=== PATIENT | female | born 1960 | race African-American/Black ===

== ENCOUNTER → 2017-12-17 | Emergency (ER) | payer OTHER ==
[~2017-12-17] VITALS: Ht 160 cm; Wt 37.2 kg
[~2017-12-17] MED LIST: AMOX1TAB12 PO; GLUCOPHAGE XR500 MG; MUPIROCIN22 GM TOP
== END | disposition left against medical advice (07) ==
LOC: ER 13:48
DX: N39.0 Urinary tract infection, site not specified (principal); M54.5 Low back pain

== ENCOUNTER 2018-01-02 11:21 | Emergency (ER) | payer OTHER ==
[~2018-01-02] VITALS: Ht 149.9 cm; Wt 37.2 kg
== END 2018-01-02 14:16 | disposition home or self-care (01) ==
LOC: ER 11:21
DX: M54.5 Low back pain (principal)

== ENCOUNTER 2018-01-09 15:46 | Emergency (ER) | payer OTHER ==
[~2018-01-09] VITALS: Ht 160 cm; Wt 37.2 kg
== END 2018-01-09 18:30 | disposition home or self-care (01) ==
LOC: ER 15:46
DX: S13.4XXD Sprain of ligaments of cervical spine, subsequent encounter (principal); W18.39XD Other fall on same level, subsequent encounter

== ENCOUNTER 2018-01-30 11:24 | Emergency (ER) | payer OTHER ==
[~2018-01-30] VITALS: Ht 157.5 cm; Wt 36.3 kg
== END 2018-01-30 16:04 | disposition home or self-care (01) ==
LOC: ER 11:24
DX: S70.01XA Contusion of right hip, initial encounter (principal); X58.XXXA Exposure to other specified factors, initial encounter; Y93.89 Activity, other specified; Y92.89 Other specified places as the place of occurrence of the external cause; Y99.8 Other external cause status

== ENCOUNTER 2018-11-19 19:27 | Emergency (ER) | payer OTHER ==
[~2018-11-19] VITALS: Ht 152.4 cm; Wt 49.9 kg
[2018-11-19] MEDS ORDERED: CLEOCIN HCL150 MG PO (23:44)
[2018-11-19] MEDS ORDERED: IBUPROFEN800 MG PO (23:44)
[2018-11-19] MEDS ORDERED: INTESTINEX680 M1 PO (23:44)
== END 2018-11-20 00:22 | disposition home or self-care (01) ==
LOC: ER 19:27
DX: K04.7 Periapical abscess without sinus (principal); K08.89 Other specified disorders of teeth and supporting structures

== ENCOUNTER 2018-11-20 18:12 | Emergency (ER) | payer OTHER ==
[~2018-11-20] VITALS: Ht 160 cm; Wt 31.8 kg
[~2018-11-20 18:12] MED LIST changes: +CLEOCIN HCL150 MG PO; +IBUPROFEN800 MG PO; +INTESTINEX680 M1 PO
== END 2018-11-20 22:11 | disposition home or self-care (01) ==
LOC: ER 18:12
DX: K08.89 Other specified disorders of teeth and supporting structures (principal)

== ENCOUNTER 2018-11-23 20:54 | Emergency (ER) | payer OTHER ==
[~2018-11-23] VITALS: Ht 160 cm; Wt 36.3 kg
== END 2018-11-23 22:20 | disposition home or self-care (01) ==
LOC: ER 20:54
DX: K08.89 Other specified disorders of teeth and supporting structures (principal)

== ENCOUNTER → 2018-12-24 | Emergency (ER) | payer OTHER ==
[~2018-12-24] VITALS: Ht 147.3 cm; Wt 40.8 kg
== END | disposition left against medical advice (07) ==
LOC: ER 17:16 → EDBD 17:30
DX: Z53.20 Procedure and treatment not carried out because of patient's decision for unspecified reasons (principal)

== ENCOUNTER 2019-02-23 14:44 | Emergency (ER) | payer OTHER ==
[~2019-02-23] VITALS: Ht 157.5 cm; Wt 31.8 kg
[2019-02-23] MEDS ORDERED: PROTONIX40 MG PO (19:54)
[2019-02-23] MEDS ORDERED: PEPCID40 MG PO (19:54)
[2019-02-23] MEDS ORDERED: ONDANSETRON ODT4 MG SL (19:54)
[2019-02-23] MEDS ORDERED: MAALOX MAXIMUM355 ML PO (19:54)
== END 2019-02-23 20:26 | disposition home or self-care (01) ==
LOC: ER 14:44
DX: K29.70 Gastritis, unspecified, without bleeding (principal); K21.9 Gastro-esophageal reflux disease without esophagitis; R53.1 Weakness

== ENCOUNTER → 2019-02-24 | Emergency (ER) | payer OTHER ==
[~2019-02-24] VITALS: Ht 152.4 cm; Wt 45.4 kg
[~2019-02-24] MED LIST changes: +MAALOX MAXIMUM355 ML PO; +ONDANSETRON ODT4 MG SL; +PEPCID40 MG PO; +PROTONIX40 MG PO
== END | disposition left against medical advice (07) ==
LOC: ER 15:42
DX: K29.70 Gastritis, unspecified, without bleeding (principal)

== ENCOUNTER → 2020-09-20 | Emergency (ER) | payer OTHER ==
[~2020-09-20] VITALS: Ht 160 cm; Wt 36.3 kg
== END | disposition left against medical advice (07) ==
LOC: ER 18:56
DX: M54.5 Low back pain (principal); B96.0 Mycoplasma pneumoniae [M. pneumoniae] as the cause of diseases classified elsewhere; Z03.818 Encounter for observation for suspected exposure to other biological agents ruled out

== ENCOUNTER 2022-05-06 11:11 | Emergency (ER) | payer OTHER ==
[~2022-05-06] VITALS: Ht 160 cm; Wt 63.5 kg
== END 2022-05-06 14:52 | disposition home or self-care (01) ==
LOC: ER 11:11
DX: I87.2 Venous insufficiency (chronic) (peripheral) (principal); G62.89 Other specified polyneuropathies; Z91.013 Allergy to seafood; Z88.8 Allergy status to other drugs, medicaments and biological substances

== ENCOUNTER 2022-05-10 10:29 | Emergency (ER) | payer OTHER ==
[~2022-05-10] VITALS: Ht 157.5 cm; Wt 63.5 kg
[2022-05-10] MEDS ORDERED: DICLOFENAC-MIS1 EAC3 (10:42)
[2022-05-10] MEDS ORDERED: IBU800 MG PO (15:36)
== END 2022-05-10 16:10 | disposition home or self-care (01) ==
LOC: ER 10:29
DX: R22.41 Localized swelling, mass and lump, right lower limb (principal); B20 Human immunodeficiency virus [HIV] disease; Z91.041 Radiographic dye allergy status; Z91.013 Allergy to seafood; Z85.3 Personal history of malignant neoplasm of breast

== ENCOUNTER 2022-06-26 14:43 | Emergency (ER) | payer OTHER ==
[~2022-06-26] VITALS: Ht 160 cm; Wt 45.4 kg
[~2022-06-26 14:43] MED LIST changes: +DICLOFENAC-MIS1 EAC3; +IBU800 MG PO
== END 2022-06-26 17:04 | disposition home or self-care (01) ==
LOC: ER 14:43
DX: M79.604 Pain in right leg (principal); M79.605 Pain in left leg; Z88.8 Allergy status to other drugs, medicaments and biological substances; Z91.013 Allergy to seafood; E11.9 Type 2 diabetes mellitus without complications; Z21 Asymptomatic human immunodeficiency virus [HIV] infection status

== ENCOUNTER → 2022-12-03 | Emergency (ER) | payer OTHER ==
[~2022-12-03] VITALS: Ht 160 cm; Wt 51.7 kg
[~2022-12-03] MED LIST changes: +BENADRYL ALLERG25 MG PO; +RAYOS5 MG PO
== END | disposition home or self-care (01) ==
LOC: ER 12:11
DX: L50.9 Urticaria, unspecified (principal); Z91.013 Allergy to seafood; Z91.041 Radiographic dye allergy status

== ENCOUNTER 2023-01-26 21:22 | Emergency (ER) | payer OTHER ==
[~2023-01-26] VITALS: Ht 160 cm; Wt 49.4 kg
== END 2023-01-27 00:14 | disposition home or self-care (01) ==
LOC: ER 21:22
DX: L50.8 Other urticaria (principal); R21 Rash and other nonspecific skin eruption; Z91.013 Allergy to seafood; Z91.041 Radiographic dye allergy status

== ENCOUNTER 2023-04-24 13:34 | Emergency (ER) | payer OTHER ==
[~2023-04-24] VITALS: Ht 160 cm; Wt 45.4 kg
[2023-04-24] MEDS ORDERED: MACRODANTIN100 M1 PO (16:13)
[2023-04-24] MEDS ORDERED: PYRIDIUM200 MG PO (16:13)
== END 2023-04-24 17:40 | disposition home or self-care (01) ==
LOC: ER 13:34
DX: R21 Rash and other nonspecific skin eruption (principal); T78.1XXA Other adverse food reactions, not elsewhere classified, initial encounter; T78.49XA Other allergy, initial encounter; X58.XXXA Exposure to other specified factors, initial encounter; Z91.013 Allergy to seafood; Z91.041 Radiographic dye allergy status

== ENCOUNTER 2023-05-10 10:36 | Emergency (ER) | payer OTHER ==
[~2023-05-10] VITALS: Ht 160 cm; Wt 44.0 kg
[~2023-05-10 10:36] MED LIST changes: +MACRODANTIN100 M1 PO; +PYRIDIUM200 MG PO
[2023-05-10] MEDS ORDERED: TERBINAFINE HC250 MG PO (11:04)
== END 2023-05-10 11:22 | disposition home or self-care (01) ==
LOC: ER 10:36
DX: B35.4 Tinea corporis (principal); R21 Rash and other nonspecific skin eruption; R53.81 Other malaise; I10 Essential (primary) hypertension; Z91.013 Allergy to seafood; Z91.041 Radiographic dye allergy status

== ENCOUNTER → 2023-10-27 | Emergency (ER) | payer OTHER ==
[~2023-10-27] VITALS: Ht 162.6 cm; Wt 49.9 kg
[~2023-10-27] MED LIST changes: +TERBINAFINE HC250 MG PO
== END | disposition left against medical advice (07) ==
LOC: ER 18:48
DX: L30.9 Dermatitis, unspecified (principal); B00.9 Herpesviral infection, unspecified; R21 Rash and other nonspecific skin eruption; Z91.013 Allergy to seafood; Z91.041 Radiographic dye allergy status

== ENCOUNTER 2024-10-09 15:52 | Emergency (ER) | payer OTHER ==
[~2024-10-09] VITALS: Ht 157.5 cm; Wt 34.0 kg
[~2024-10-09 15:52] MED LIST changes: +VALACYCLOVIR1000 MG PO
[2024-10-09 16:23] VITALS: BP 139/91; O2SAT 99
[2024-10-09] MEDS ORDERED: hydrOXYzine PAMOATE 50 MG CAPSULE PO STA (17:27)
[2024-10-09] MEDS ORDERED: KETOROLAC TROMETHAMINE 60 MG VIAL IM STA (17:27)
[2024-10-09] MEDS ORDERED: hydrOXYzine PAMOATE 50 MG CAPSULE PO ONE (17:35)
[2024-10-09] MEDS ORDERED: KETOROLAC TROMETHAMINE 60 MG VIAL IM ONE (17:35)
== END 2024-10-09 17:45 | disposition home or self-care (01) ==
LOC: ER 15:55
DX: B02.23 Postherpetic polyneuropathy (principal); Z91.013 Allergy to seafood

== ENCOUNTER 2024-10-28 16:02 | Emergency (ER) | payer OTHER ==
[~2024-10-28] VITALS: Ht 152.4 cm; Wt 45.4 kg
== END 2024-10-28 20:30 | disposition home or self-care (01) ==
LOC: ER 16:04
DX: B35.9 Dermatophytosis, unspecified (principal); Z88.8 Allergy status to other drugs, medicaments and biological substances; Z91.013 Allergy to seafood

== ENCOUNTER → 2025-04-01 | Emergency (ER) | payer OTHER ==
[~2025-04-01] VITALS: Ht 157.5 cm; Wt 38.1 kg
[~2025-04-01] MED LIST changes: +KETOROLAC TROMETHAMINE 60 MG VIAL IM ONE
== END | disposition home or self-care (01) ==
LOC: ER 16:20
DX: S69.81XA Other specified injuries of right wrist, hand and finger(s), initial encounter (principal); W22.8XXA Striking against or struck by other objects, initial encounter; Y93.89 Activity, other specified; Y92.89 Other specified places as the place of occurrence of the external cause; Z91.013 Allergy to seafood; Z91.041 Radiographic dye allergy status

== ENCOUNTER 2025-06-21 11:20 | Emergency (ER) | payer OTHER ==
[~2025-06-21] VITALS: Ht 157.5 cm; Wt 38.1 kg
[~2025-06-21 11:20] MED LIST changes: -KETOROLAC TROMETHAMINE 60 MG VIAL IM ONE
[2025-06-21] MEDS ORDERED: MD PARA B/P (14:02)
[2025-06-21] MEDS ORDERED: ACETAMINOPHEN WITH CODEINE 1 UDTAB TABLET PO ONE (16:00)
[2025-06-21] MEDS ORDERED: 0.9 % SODIUM CHLORIDE 1,000 ML IV STA (16:30)
[2025-06-21] MEDS ORDERED: KETOROLAC TROMETHAMINE 30 MG VIAL IV STA (16:31)
[2025-06-21] MEDS ORDERED: CLINDAMYCIN PHOSPHATE 150 MG/ML (900mg) IV STA (16:32)
[2025-06-21 17:23] LABS: BASO % 0.3 % (0.1-1.2); EOS # 1.24 (0.04-0.54); LYMPH # 1.61 (1.18-3.74); LYMPH % 23.3 % (19.3-53.1); MEAN PLATELET VOLUME 10.80 fl (9.4-12.4); MONO # 0.49 (0.24-0.82); MONO % 7.1 % (4.7-12.5); NEUT # 3.53 (1.56-6.13); NEUT % 51.1 % (34.0-71.1); RED CELL DISTRIBUTION WIDTH 13.4 % (11.6-14.4)
[2025-06-21 17:44] LABS: BUN CREA RATIO 15.0 (7.0-25.0); CREATININE SERUM 0.53 mg/dL (0.55-1.02); GFR 116.14; GLUCOSE FASTING 102.0 mg/dL (65-100); OSMOLALITY SERUM 278.0 MOSM/KG (275-295)
[2025-06-21 17:56] LABS: EOS % 17.9 % (0.7-7.0)
[2025-06-21 17:58] LABS: NEUTROPHILS MAN 62.0 %
[2025-06-21 17:59] LABS: EOSINOPHIL MAN 16.0 %; LYMPHOCYTE MAN 18.0 %; MONOCYTE MAN 4.0 %
[2025-06-21 18:02] LABS: ERYTHROCYTE SEDIMENTATION RATE 30 mm/hr (0-30)
== END 2025-06-21 18:47 | disposition home or self-care (01) ==
LOC: ER 11:20
DX: L03.116 Cellulitis of left lower limb (principal); M85.872 Other specified disorders of bone density and structure, left ankle and foot; M20.12 Hallux valgus (acquired), left foot; Z88.8 Allergy status to other drugs, medicaments and biological substances; Z91.013 Allergy to seafood